=== PATIENT | female | born 1945 | race Two or more races ===

== ENCOUNTER 2017-11-12 12:25 | Emergency (ER) | payer OTHER ==
[~2017-11-12] VITALS: Ht 160 cm; Wt 82.6 kg
[2017-11-12] MEDS ORDERED: SYNTHROID137 MCG (13:08)
[2017-11-12] MEDS ORDERED: ATENOLOL25 MG (13:08)
[2017-11-12] MEDS ORDERED: FORTAMET1000 MG (13:08)
[2017-11-12] MEDS ORDERED: NORVASC5 MG (13:09)
[2017-11-12] MEDS ORDERED: GLIPIZIDE5 MG (13:09)
[2017-11-12] MEDS ORDERED: LIPITOR20 MG (13:09)
[2017-11-12] MEDS ORDERED: HYDROCHLOROTHIA25 MG (13:09)
== END 2017-11-12 15:33 | disposition home or self-care (01) ==
LOC: ER 12:25
DX: M54.5 Low back pain (principal)

== ENCOUNTER → 2018-05-25 | Emergency (ER) | payer OTHER ==
[~2018-05-25] VITALS: Ht 160 cm; Wt 83.0 kg
[~2018-05-25] MED LIST: ATENOLOL25 MG; CEFUROXIME500 MG PO; FORTAMET1000 MG; GLIPIZIDE5 MG; HYDROCHLOROTHIA25 MG; LIPITOR20 MG; MOBIC15 MG PO; NORVASC5 MG; SYNTHROID137 MCG
== END | disposition home or self-care (01) ==
LOC: ER 04:01
DX: R10.31 Right lower quadrant pain (principal)

== ENCOUNTER 2023-06-01 10:33 | Emergency (ER) | payer OTHER ==
[~2023-06-01] VITALS: Ht 160 cm; Wt 77.1 kg
[2023-06-01] MEDS ORDERED: FAMOtidine 10 MG/ML (4ML VIAL) IV STA (11:35)
[2023-06-01] MEDS ORDERED: MAG HYDROX/ALUMINUM HYD/SIMETH 30 ML BLIST.PACK PO STA (11:36)
[2023-06-01] MEDS ORDERED: METOCLOPRAMIDE HCL 10 MG in 0.9 % SODIUM CHLORIDE 50 ML IV ONE (11:45)
== END 2023-06-01 14:15 | disposition home or self-care (01) ==
LOC: ER
DX: R10.9 Unspecified abdominal pain (principal); K29.70 Gastritis, unspecified, without bleeding; K29.80 Duodenitis without bleeding; E78.00 Pure hypercholesterolemia, unspecified; E03.9 Hypothyroidism, unspecified; I10 Essential (primary) hypertension; E11.9 Type 2 diabetes mellitus without complications; Z79.84 Long term (current) use of oral hypoglycemic drugs
CPT/HCPCS: 96365; 99282; J2765; J3490

== ENCOUNTER 2023-06-19 07:04 | Outpatient (CLI) | payer OTHER | END 2023-06-19 07:14 | disposition home or self-care (01) | LOC: TOM 07:04 | PROVIDERS: ATTEND Internal Medicine Gastroenterology | DX: R10.10 Upper abdominal pain, unspecified (principal); R10.30 Lower abdominal pain, unspecified; K57.30 Diverticulosis of large intestine without perforation or abscess without bleeding ==